=== PATIENT | male | born 1980 | race Caucasian/White ===

== ENCOUNTER → 2020-01-26 | Outpatient (CLI) | payer OTHER ==
[~2020-01-26] MED LIST: PROBIOTIC1 EAC7 PO
== END ==
LOC: M.LAB 16:16
PROVIDERS: ATTEND Surgery
DX: Z01.812 Encounter for preprocedural laboratory examination (principal); Z20.828 Contact with and (suspected) exposure to other viral communicable diseases; K57.33 Diverticulitis of large intestine without perforation or abscess with bleeding

== ENCOUNTER 2020-02-03 05:14 | Inpatient (IN) | payer OTHER ==
[~2020-02-03] VITALS: Ht 182.9 cm; Wt 127.0 kg
--- NOTE | ~2020-02-03 | OP ---
[address] [address] OPERATIVE REPORT Name: CRUZ MITCHELL Room: [address] IN .R.#: [id number] Admission: 02/03/20 Attend Phys: Yoko Harper DO Discharge: Date of : 78 Report #: [id number] THIS REPORT FOR: //name// cc: MARY JO - Summer family physician/PCP MARY JO - Summer family physician/PCP ~ CC: Yoko Harper [facility] physician/PCP Michael Morejon DICTATED BY: Stephen Bhatti DO DATE OF SERVICE: 02/03/2020 PREOPERATIVE DIAGNOSIS: Diverticular stricture. POSTOPERATIVE DIAGNOSIS: Diverticular stricture. PROCEDURE PERFORMED: Laparoscopic sigmoidectomy with colorectal anastomosis, splenic flexure takedown and rigid proctosigmoidoscopy. ANESTHESIA: General, regional and local. PRIMARY SURGEON: Yoko Harper DO CO-SURGEON: Stephen Bhatti, PGY5 UNDERWRITING SPECIALIST: Clay Townsend, PGY4 COMPLICATIONS: None. ESTIMATED BLOOD LOSS: 50 mL. FINDINGS: Noted tattooing of colon, severe inflammation adherent to the left of the sigmoid colon adherent to the left pelvic sidewall, associated inflamed and adherent loop of small bowel, poor colon prep. INDICATIONS: The patient is a 39-year-old male with history of diverticulitis requiring percutaneous drainage. He recently underwent colonoscopy and was found to have a diverticular stricture that was able to be traversed with a pediatric colonoscope. The patient was informed of the risks and benefits of laparoscopic sigmoidectomy with risks including but not limited to bleeding, infection, bowel injury, bladder injury, need for open procedure, anastomotic leak, hernia formation, and catastrophic complications, including . The patient was in agreement with the surgical plan and wished to proceed. DESCRIPTION OF PROCEDURE: After informed consent was obtained, [place] [address] OPERATIVE REPORT Name: CRUZ MITCHELL Room: [address] IN [facility]#: [id number] Admission: 02/03/20 Attend Phys: Yoko Harper DO Discharge: Date of : 78 Report #: [id number] brought to the operating room and placed in supine position. SCDs were on and running. Preoperative antibiotics were given. General anesthesia was administered with an ET tube. The patient received bilateral transversus abdominis plane blocks. The patient was positioned into lithotomy. A Ellsworth catheter was placed sterilely. The patient was positioned with both arms tucked and both arms were secured. IVs were running and the pulse oximetry was intact. A surgical pause was held to confirm proper patient and procedure. A supraumbilical 2 cm incision was made with an 11 blade after local anesthetic infiltration. Dissection was bluntly carried down to the fascia, which was elevated with 2 Kochers and incised using cautery. Peritoneum was bluntly entered using a Caroline. Bilateral stay sutures were placed using 0 Vicryl. A 12-mm Tyrone trocar was introduced and the abdomen was insufflated. A brief exploration was undertaken. There was no obvious active inflammation or infection. A 5-mm port was placed in the right lower quadrant and an additional 12-mm port was placed in the suprapubic region. Laparoscopic Babcocks were used to reflect the sigmoid colon medially. There was some inflammation chronic in nature with adhesions from the sigmoid colon through the left pelvic sidewall. There was extremely hard and woody inflammation of the segment of the sigmoid colon. Distally, there was a tattoo noted at the distal rectosigmoid junction. The rectum and distal sigmoid appeared very soft. The proximal sigmoid had a separate area of distinct inflammation with an associated loop of small bowel that was adherent, but proximal to this and the left colon was soft and there was no obvious diverticula. Blunt dissection was used to sweep the sigmoid colon off of the pelvic sidewall using a suction oil and gas well treatment operator. The white line of Toldt was opened using cautery as well as a LigaSure, 5-mm device. Dissection was carried up the sigmoid to the left colon and up to the splenic flexure. Splenic flexure was taken down with a combination of blunt dissection and the LigaSure. Dissection was then carried back down the left colon towards the sigmoid. Further dissection was used to completely mobilize the distinctly chronically inflamed portion of the sigmoid, which just was right at the level of the pelvic brim. The peritoneum on the right and left of the rectosigmoid was opened using cautery. Once the lateral portion of the left colon splenic flexure and sigmoid were completely mobilized, a window was created at the distal extent of the inflammation using blunt dissection and the LigaSure. Once completely through the mesocolon at the rectosigmoid junction, a 45-mm purple load Covidien stapler was fired across the rectum. Two additional purple loads 45 mm were used to completely transect the colon. Once completely free, the staple line was inspected and the staple line was insufflated and there was no leak at the rectal stump. The mesocolon was then taken down using the LigaSure. Once adequately mobilized to the healthy portion of the left colon, a laparoscopic grasper was placed on the distal portion of the transected sigmoid and the abdomen was desufflated. The supraumbilical incision was extended to approximately 8 cm. Dissection was carried through the fascia using cautery. An Jayme wound protector was introduced. The sigmoid was grasped and exteriorized through the wound protector. Once it was completely exteriorized, the healthy bowel was grasped. Heavy curved Mayos were used to transect the [place] [id number] OPERATIVE REPORT Name: CRUZ MITCHELL Room: [address] IN ..#: [id number] Admission: 02/03/20 Attend Phys: Yoko Harper DO Discharge: Date of : 78 Report #: [id number] proximal portion of the sigmoid. The specimen was completely free and handed off to the backtable. Allis clamps were used to grasp the proximal portion of the bowel circumferentially. The EEA sizers were used and the patient easily accommodated a 31-mm sizer within his colon. The 31-mm EEA was selected. The anvil was tagged with 0 silk and then introduced into the proximal colon. A 60-mm purple load was fired across the colon after grasping the edges together with an Allis. This transected the silk stitch, which was grasped and retracted to bring the spike through anterior to the staple line in a perfect position to ensure seal around the base of the anvil. The 0 silk was used to pursestring around the base of the anvil. Of note, prior to transecting and exteriorizing the specimen, a loop of small bowel that was adherent to the chronically inflamed portion of the sigmoid colon was dissected free from the colon using laparoscopic farzana and blunt dissection. Afterwards, this was closely inspected, there were no serosal injuries, although this portion of the small bowel was somewhat bruised from dissection, but appeared intact. Succuss was milked past this area with no leak and was reinspected at multiple points throughout the case and was noted to be intact with no evidence of a full-thickness injury or external serosal injury. Once the anvil and spike were secured, the spike was removed and the anvil was turned into the abdomen, the cap was placed on the Jayme wound protector. The abdomen was reinsufflated. The sizers were passed transanally until the 31-mm sizer easily passed the 31-mm EEA Covidien stapler was introduced through the anus up to the rectal staple line. The spike was opened just anterior to the rectal staple line. The anvil was secured to the spike and the EEA was closed and this stapler was deployed. The stapler easily removed from the anus. Of note, the colon prep was poor and there was stool throughout the entire colon. A suction oil and gas well treatment operator was used to irrigate the pelvis and a leak test was performed. There were some bubbles from a focal point at the anterior of the staple line. The anastomosis was tension free. However, there was a small focal area of bubbling. The EndoStitch with an 0 Polysorb stitch was used to place a wxxrwj-bh-spukg over this area of the staple line in a Lembert fashion. This was tied and cut. The leak test was repeated and was negative. There was no bubbling after inspection and submersion of the staple line once more. The staple line was covered as well as the anterior abdominal structures with the omentum. The 12-mm suprapubic port was closed with an 0 Vicryl in a PMI device. A ELLYN drain was placed along the left pericolic gutter and along the anastomosis through the right lower quadrant 5-mm port. This was secured in place using a 2-0 nylon. The extraction site Jayme wound protector was removed and the fascia was closed as well as the peritoneum with a 2-0 Prolene in a running continuous manner from the superior and inferior aspects of the wound and a small bites' fashion. The wound was then closed in layered fashion using 3-0 Vicryl and 4-0 Monocryl. Remainder of skin incisions were closed using 4-0 Monocryl. Wounds were cleansed [place] [address] OPERATIVE REPORT Name: CRUZ MITCHELL Room: [address] IN ..#: [id number] Admission: 02/03/20 Attend Phys: Yoko Harper DO Discharge: Date of : 78 Report #: [id number] with Dermabond. A drain sponge was applied at the ELLYN drain site. The patient was emerged from anesthesia and transferred to PACU in stable condition. By: [id number] Harper DO /nt
[2020-02-04 00:32] VITALS: BP 124/69
[2020-02-04 04:07] VITALS: BP 117/59
[2020-02-04 04:12] LABS: HEMATOCRIT 39.4 % (42.0-52.0); HEMOGLOBIN 13.4 gm/dL (14.0-18.0); MCH 30.9 pg (26.0-34.0); MCV 90.9 fL (80.0-100.0); MPV 8.1 fl. (7.2-11.1); NUCLEATED RBCS 0 /100WBC; PLATELET COUNT* 307 thou/uL (150-400); RBC 4.34 mil/uL (4.50-6.00); RDW-CV 13.1 % (10.5-14.5); WBC 15.9 thou/uL (4.0-11.0)
[2020-02-04 04:34] LABS: CALCIUM 8.5 mg/dL (8.5-10.1); POTASSIUM 4.3 mmol/L (3.5-5.1)
[2020-02-04 07:30] VITALS: BP 118/78
[2020-02-04 08:13] LABS: ABSOLUTE LYMPHOCYTES 0.6 thou/uL (0.8-5.3); ABSOLUTE MONOCYTES 0.5 thou/uL (0.0-1.2); ABSOLUTE NEUTROPHILS 14.8 thou/uL (1.6-8.1); PLATELET ESTIMATE ADEQUATE
[2020-02-04 12:00] VITALS: BP 139/86
[2020-02-04 16:00] VITALS: BP 120/67
[2020-02-04 20:20] VITALS: BP 118/67
[2020-02-05 00:17] VITALS: BP 108/62
[2020-02-05 04:03] LABS: ABSOLUTE EOSINOPHILS 0.1 thou/uL (0.0-0.7); ABSOLUTE LYMPHOCYTES 1.7 thou/uL (0.8-5.3); ABSOLUTE MONOCYTES 1.1 thou/uL (0.0-1.2); ABSOLUTE NEUTROPHILS 7.7 thou/uL (1.6-8.1); BASOPHILS 0.3 %; HEMATOCRIT 35.9 % (42.0-52.0); HEMOGLOBIN 12.3 gm/dL (14.0-18.0); LYMPHOCYTES 16.1 %; MCH 31.4 pg (26.0-34.0); MCHC 34.2 g/dL (28.0-37.0); MCV 91.9 fL (80.0-100.0); MONOCYTES 10.1 %; MPV 7.9 fl. (7.2-11.1); NUCLEATED RBCS 0 /100WBC; PLATELET COUNT* 257 thou/uL (150-400); POLYS 72.5 %; RBC 3.91 mil/uL (4.50-6.00); RDW-CV 13.1 % (10.5-14.5); WBC 10.7 thou/uL (4.0-11.0)
[2020-02-05 04:05] VITALS: BP 127/61
[2020-02-05 05:49] LABS: CALCIUM 8.4 mg/dL (8.5-10.1); CREATININE 0.8 mg/dL (0.6-1.3); MAGNESIUM 1.9 mg/dL (1.8-2.4); PHOSPHORUS* 2.3 mg/dL (2.5-4.9); POTASSIUM 3.4 mmol/L (3.5-5.1)
[2020-02-05 08:00] VITALS: BP 123/69
[2020-02-05 12:27] VITALS: BP 116/80
[2020-02-05 16:06] VITALS: BP 110/71
[2020-02-05 20:30] VITALS: BP 126/73
[2020-02-06 04:13] LABS: ABSOLUTE EOSINOPHILS 0.3 thou/uL (0.0-0.7); ABSOLUTE MONOCYTES 1.2 thou/uL (0.0-1.2); ABSOLUTE NEUTROPHILS 6.8 thou/uL (1.6-8.1); BASOPHILS 0.4 %; EOSINOPHILS 2.5 %; HEMATOCRIT 34.7 % (42.0-52.0); LYMPHOCYTES 19.5 %; MCH 31.8 pg (26.0-34.0); MCHC 34.6 g/dL (28.0-37.0); MONOCYTES 11.9 %; MPV 7.8 fl. (7.2-11.1); NUCLEATED RBCS 0 /100WBC; PLATELET COUNT* 265 thou/uL (150-400); POLYS 65.7 %; RBC 3.77 mil/uL (4.50-6.00); WBC 10.4 thou/uL (4.0-11.0)
[2020-02-06 04:27] LABS: CALCIUM 8.7 mg/dL (8.5-10.1); CREATININE 0.8 mg/dL (0.6-1.3); MAGNESIUM 1.9 mg/dL (1.8-2.4); PHOSPHORUS* 3.2 mg/dL (2.5-4.9); POTASSIUM 3.9 mmol/L (3.5-5.1)
[2020-02-06 08:00] VITALS: BP 116/68
[2020-02-06 16:04] VITALS: BP 119/65
--- NOTE | 2020-02-06 17:06 | PATH ---
[address] [address] PATHOLOGY RPT PROCEDURE Name: FRANCISCO KRISHNAN Room: [address] IN ..#: [id number] Admission: 02/03/20 Date of : 78 Discharge: Report #: [id number] Path Case #: [id number] [facility] Accession Number: [id number] . 01 Material submitted: . sigmoid colon - SIGMOID COLON AND ANASTOMOTIC RINGS . 01 Clinical history: . DIVERTICULAR STRICTURE . 02 Diagnosis: Sigmoid colon and anastomotic rings: - Segment of benign colon with severe diverticular disease including chronic and acute diverticulitis with perforation, abscess formation, fibrosis, acute and chronic serositis and serosal adhesions. - Five benign and hyperplastic pericolic lymph nodes. - Two benign colonic anastomotic rings. (NINFA:eren; 02/06/2020) MBShaye 02/06/2020 1658 Local . 02 Electronically signed: . Brice Brooks MD, Pathologist NPI- [id number] . 01 Gross description: . The specimen is received in formalin, labeled "Francisco Krishnan, sigmoid colon and anastomotic rings". Received is an unoriented segment of colon measuring 13.5 cm in length by 3.0 cm in diameter. One margin is stapled closed and the opposite margin is open. The serosal surface is dusky mishra-brown and covered with overlying adhesions. The attached pericolic fat measures up to 2.5 cm in thickness. The specimen is opened along the antimesenteric line to reveal pink-steen mucosa with normal architectural folds. An area of abscess (questionable perforation) is identified in the attached pericolic fat measuring 3.5 cm in length by up to 1.5 cm in diameter filled with fecal material. Multiple diverticula are identified, several of which are hemorrhagic in appearance and filled with fecal material. Sectioning through the attached pericolic fat reveals five readily identifiable lymph nodes ranging in size from 0.3 to 1.1 cm in maximum dimensions. . Also received within the specimen container are two anastomotic rings of light steen to mishra-steen mucosa measuring 2.2 x 2.1 x 1.4 and 4.5 x 1.3 x 1.0 cm. Both rings have wilfredo present. The specimen is submitted representatively as follows: . A1 stapled margin A2 open margin A3-A6 sales representative wire rope sections of area of abscess ([place] [address] PATHOLOGY RPT PROCEDURE Name: FRANCISCO KRISHNAN Room: [address] IN [facility].#: [id number] Admission: 02/03/20 Date of : 78 Discharge: Report #: [id number] Path Case #: [id number] perforation) A7-A9 sales representative wire rope sections of diverticula A10 intact lymph nodes A11 one bisected lymph node A12 one trisected lymph node A13 sales representative wire rope sections from each anastomotic ring. (CAA; 02/05/2020) QAC/QAC 02/06/2020 1627 Local . 02 Pathologist provided ICD-10: K57.32, K57.30, K65.8 . 02 CPT . 418988 Specimen Comment: A courtesy copy of this report has been sent to [phone] Specimen Comment: Report sent to Performed at: [address], [place] [id number] MD Ludwig Beach MD Phone: [phone] Performed at: 02 [facility] [address], [place], [place] [id number] MD Brice Brooks MD Phone: [phone]
[2020-02-06 20:00] VITALS: BP 107/60
[2020-02-07 05:35] LABS: ABSOLUTE EOSINOPHILS 0.3 thou/uL (0.0-0.7); ABSOLUTE MONOCYTES 0.7 thou/uL (0.0-1.2); BASOPHILS 0.6 %; EOSINOPHILS 3.4 %; HEMATOCRIT 36.9 % (42.0-52.0); HEMOGLOBIN 12.6 gm/dL (14.0-18.0); LYMPHOCYTES 24.5 %; MCH 31.5 pg (26.0-34.0); MCHC 34.3 g/dL (28.0-37.0); MCV 91.8 fL (80.0-100.0); MONOCYTES 9.3 %; MPV 8.1 fl. (7.2-11.1); NUCLEATED RBCS 0 /100WBC; PLATELET COUNT* 310 thou/uL (150-400); POLYS 62.2 %; RBC 4.01 mil/uL (4.50-6.00); RDW-CV 12.8 % (10.5-14.5)
[2020-02-07 05:50] LABS: CALCIUM 9.1 mg/dL (8.5-10.1); MAGNESIUM 2.2 mg/dL (1.8-2.4); PHOSPHORUS* 3.8 mg/dL (2.5-4.9); POTASSIUM 3.9 mmol/L (3.5-5.1)
[2020-02-07 08:00] VITALS: BP 127/81
[2020-02-07 15:16] VITALS: BP 127/81
== END 2020-02-07 16:43 | disposition home or self-care (01) | DRG 348 ==
LOC: M.PRE 05:14 → M.ORTHSURG 11:12 → M.TBA 11:12 → M.PRE 11:26 → M.ORTHSURG 21:15
PROVIDERS: ADMIT Surgery; ATTEND Surgery
DX: K57.20 Diverticulitis of large intestine with perforation and abscess without bleeding (principal); K56.699 Other intestinal obstruction unspecified as to partial versus complete obstruction; M25.512 Pain in left shoulder; K21.9 Gastro-esophageal reflux disease without esophagitis; J45.909 Unspecified asthma, uncomplicated

== ENCOUNTER 2020-05-11 13:08 | Emergency (ER) | payer OTHER ==
[~2020-05-11] VITALS: Ht 185.4 cm; Wt 129.3 kg
[2020-05-11 13:51] LABS: ABSOLUTE EOSINOPHILS 0.2 thou/uL (0.0-0.7); ABSOLUTE LYMPHOCYTES 2.1 thou/uL (0.8-5.3); ABSOLUTE MONOCYTES 0.7 thou/uL (0.0-1.2); ABSOLUTE NEUTROPHILS 3.2 thou/uL (1.6-8.1); BASOPHILS 0.7 %; EOSINOPHILS 2.9 %; HEMATOCRIT 43.7 % (42.0-52.0); HEMOGLOBIN 14.9 gm/dL (14.0-18.0); LYMPHOCYTES 33.3 %; MCH 31.3 pg (26.0-34.0); MCHC 34.1 g/dL (28.0-37.0); MCV 91.8 fL (80.0-100.0); MONOCYTES 11.9 %; MPV 7.5 fl. (7.2-11.1); NUCLEATED RBCS 0 /100WBC; PLATELET COUNT* 237 thou/uL (150-400); POLYS 51.2 %; RBC 4.76 mil/uL (4.50-6.00); RDW-CV 13.1 % (10.5-14.5); WBC 6.2 thou/uL (4.0-11.0)
[2020-05-11 14:00] LABS: CALCIUM 8.8 mg/dL (8.5-10.1); CREATININE 0.9 mg/dL (0.6-1.3); POTASSIUM 4.1 mmol/L (3.5-5.1)
[2020-05-11 14:04] LABS: ALBUMIN 3.9 g/dL (3.4-5.0); TOTAL BILIRUBIN 0.7 mg/dL (<0.1-1.0); TOTAL PROTEIN 8.4 g/dL (6.4-8.2)
[2020-05-11 14:22] LABS: URINE BILIRUBIN NEGATIVE (Negative); URINE BLOOD NEGATIVE (Negative); URINE CLARITY CLEAR; URINE COLOR YELLOW; URINE GLUCOSE-RANDOM NEGATIVE (Negative); URINE KETONES NEGATIVE (Negative); URINE LEUKOCYTES-REFLEX NEGATIVE (Negative); URINE NITRITE-REFLEX NEGATIVE (Negative); URINE PROTEIN NEGATIVE (Negative); URINE SPECIFIC GRAVITY 1.025 (1.005-1.030); URINE UROBILINOGEN 0.2 E.U./dl (0.2-1.0)
[2020-05-11] MEDS ORDERED: FLAGYL500 M1 PO (15:52)
[2020-05-11] MEDS ORDERED: CIPROFLOXACIN500 M1 PO (15:52)
[2020-05-11 16:08] VITALS: BP 112/70
== END 2020-05-11 16:09 | disposition home or self-care (01) ==
LOC: M.ERS 13:08
PROVIDERS: Family Medicine
DX: K52.9 Noninfective gastroenteritis and colitis, unspecified (principal); K43.9 Ventral hernia without obstruction or gangrene; K21.9 Gastro-esophageal reflux disease without esophagitis; J45.909 Unspecified asthma, uncomplicated; Z90.49 Acquired absence of other specified parts of digestive tract

== ENCOUNTER → 2020-06-03 | Day surgery (SDC) | payer OTHER ==
[~2020-06-03] MED LIST changes: +CIPROFLOXACIN500 M1 PO; +FLAGYL500 M1 PO; +NOHOMEMEDICATIONS; +OXYCODONE HCL 55 MG PO
--- NOTE | 2020-06-03 11:17 | OP ---
[address] [address] OPERATIVE REPORT Name: CRUZ MITCHELL Room: [facility]#: [id number] Admission: 06/03/20 Attend Phys: Yoko Harper DO Discharge: Date of : 78 Report #: [id number] THIS REPORT FOR: cc: FAM - No family physician/PCP FAM - No family physician/PCP ~ Yoko Harper DO DATE OF SERVICE: 06/03/2020 PREOPERATIVE DIAGNOSIS: Incisional hernia. POSTOPERATIVE DIAGNOSIS: Incisional hernia. FINDINGS: A 2 x 3 cm incisional hernia containing omentum, which was reducible. SURGEON: Yoko Harper DO COSURGEON: Stephen Bhatti, PGY-5 CARPET INSPECTOR FINISHED: [employer] student. OPERATION PERFORMED: Incisional hernia repair with mesh. ANESTHESIA: LMA, local and TAP's block. ESTIMATED BLOOD LOSS: 5 mL. DRAINS: None. SPECIMENS: Hernia sac. COMPLICATIONS: None. CONDITION: Stable. DISPOSITION: PACU to home. HISTORY OF PRESENT ILLNESS: The patient is a very pleasant 40-year-old gentleman who is well known to me after surgery last year for recurrent diverticulitis. He returned to my office with complaint of a bulge at the extraction site, which was just above his umbilicus. On physical exam, he had an obvious incisional hernia. He was then consented for incisional hernia repair, possible mesh. Risks discussed included bleeding, infection, pain, scar formation, injury to bowel, recurrence of the hernia, mesh complications and risks of general anesthesia. The patient understood these risks [place] [address] OPERATIVE REPORT Name: CRUZ MITCHELL Room: [facility].#: [id number] Admission: 06/03/20 Attend Phys: Yoko Harper DO Discharge: Date of : 78 Report #: [id number] DESCRIPTION OF PROCEDURE: The patient was brought to the operating room. He was laid supine on the operating room table. SCDs were placed on bilateral lower extremities. Ancef 3 grams was given in the perioperative period. General LMA anesthesia was induced by Anesthesia without difficulty. TAP's blocks were then also provided by Anesthesia without issue. Abdomen was prepped and draped in standard sterile fashion. Timeout was performed to verify patient and procedure. A 10 mL of 0.5% Marcaine were injected in the area of the old incision just above the umbilicus. Incision was reopened using a #15 blade. Cautery was used for hemostasis. Cautery was then used to dissect down through the subcutaneous tissues until the fascia was identified. Hernia sac was then also clearly visible. Hernia sac was gently elevated using a Caroline clamp and the hernia sac was completely dissected free from the surrounding subcutaneous tissue. Fascial edges were then also cleared for approximately 2 cm surrounding hernia defect. Hernia was soft and easily reducible. It appeared to contain omentum. There was a large redundancy of hernia sac, so the hernia sac was gently dissected free from the surrounding hernia defect and was handed off for specimen. Finger was introduced into the abdomen. No adhesions were identified. There was a very small weakness, just inferior to the hernia defect. That area was easily visualized. The hernia defect was elevated and 1 stitch of 0 Prolene was placed in an inverted fashion at that area of the weakness. The defect was then measured, it measured 2 x 3 cm. A medium Ventralex ST lovelock mesh was then brought onto the field and easily deployed within the defect. Care was taken to make sure that the mesh was well deployed and that there were no intra-abdominal contents caught between the abdominal wall and the mesh. Mesh was then sutured into place. It was initially tacked into place at all 4 cardinal points using a uwhzil-[id number]-iopkj stitch of 0 Prolene. The tail of the mesh was then removed. The hernia defect was then closed, taking care to incorporate portions of the mesh with multiple interrupted stitches of 0 Prolene with excellent approximation of the hernia defect. An additional 20 mL of 0.5% Marcaine were injected in the fascia. Wound was then closed in a layered fashion using deep and superficial stitches of 3-0 Vicryl in inverted interrupted fashion. Skin wound was closed with running 4-0 Monocryl. A total of 30 mL of 0.5% Marcaine were used to anesthetize the wound. Wound was then cleansed and covered with Dermabond. The patient was then allowed to awaken from anesthesia, was extubated and transported to the recovery room with no further difficulties. Counts were correct x 2 at the conclusion of the case. Binder was placed in the operating room. <ELECTRONICALLY SIGNED> By: Yoko Harper DO 06/03/20 1117 [id number] Harper DO /nt
== END | disposition home or self-care (01) ==
LOC: M.SUR 07:23
PROVIDERS: ATTEND Surgery
DX: K43.2 Incisional hernia without obstruction or gangrene (principal); J45.909 Unspecified asthma, uncomplicated; K21.9 Gastro-esophageal reflux disease without esophagitis; Z20.828 Contact with and (suspected) exposure to other viral communicable diseases; Z98.890 Other specified postprocedural states; Z79.899 Other long term (current) drug therapy

== ENCOUNTER 2021-01-01 10:15 | Emergency (ER) | payer OTHER ==
[~2021-01-01] VITALS: Ht 182.9 cm; Wt 131.5 kg
[2021-01-01 10:37] LABS: ABSOLUTE BASOPHILS 0.1 thou/uL (0.0-0.2); ABSOLUTE EOSINOPHILS 0.2 thou/uL (0.0-0.7); ABSOLUTE LYMPHOCYTES 2.6 thou/uL (0.8-5.3); ABSOLUTE MONOCYTES 0.8 thou/uL (0.0-1.2); ABSOLUTE NEUTROPHILS 3.5 thou/uL (1.6-8.1); EOSINOPHILS 2.6 %; HEMATOCRIT 45.2 % (42.0-52.0); HEMOGLOBIN 15.1 gm/dL (14.0-18.0); LYMPHOCYTES 36.2 %; MCH 31.2 pg (26.0-34.0); MCHC 33.3 g/dL (28.0-37.0); MCV 93.5 fL (80.0-100.0); MONOCYTES 11.4 %; MPV 8.3 fl. (7.2-11.1); NUCLEATED RBCS 0 /100WBC; PLATELET COUNT* 236 thou/uL (150-400); POLYS 48.8 %; RBC 4.83 mil/uL (4.50-6.00); RDW-CV 12.7 % (10.5-14.5); WBC 7.2 thou/uL (4.0-11.0)
[2021-01-01 10:48] LABS: CALCIUM 8.9 mg/dL (8.5-10.1); CREATININE 0.9 mg/dL (0.6-1.3); POTASSIUM 4.5 mmol/L (3.5-5.1)
[2021-01-01 10:53] LABS: TOTAL BILIRUBIN 0.6 mg/dL (<0.1-1.0); TOTAL PROTEIN 8.4 g/dL (6.4-8.2)
[2021-01-01] MEDS ORDERED: DICYCLOMINE HCL20 MG PO (12:42)
[2021-01-01] MEDS ORDERED: NABUMETONE 750750 M1 PO (12:42)
[2021-01-01] MEDS ORDERED: COLACE100 MG PO (12:43)
[2021-01-01 13:05] VITALS: BP 130/86
--- NOTE | 2021-01-02 15:21 | EKG ---
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
== END 2021-01-01 13:07 | disposition home or self-care (01) ==
LOC: M.ERS 10:15
PROVIDERS: Nurse Practitioner Family
DX: K42.9 Umbilical hernia without obstruction or gangrene (principal); J45.909 Unspecified asthma, uncomplicated; K21.9 Gastro-esophageal reflux disease without esophagitis